=== PATIENT | female | born 1985 | race American Indian/Alaskan Native ===

== ENCOUNTER 2017-02-02 13:21 | Inpatient (IN) | payer MEDICAID ==
[2017-02-02] MEDS ORDERED: MINERAL OIL PO PRN (14:12)
[2017-02-02] MEDS ORDERED: XYLOCAINE 2% INFILTRATI ONE (14:12)
[2017-02-02] MEDS ORDERED: POLYCILLIN/NS 2 GM/100 ML 2 GM/100 ML BAG IV ONE (14:12)
[2017-02-02] MEDS ORDERED: BRETHINE IVP PRN (14:12)
[2017-02-02] MEDS ORDERED: BRETHINE SUB-Q PRN (14:12)
[2017-02-02] MEDS ORDERED: ePHEDrine SULFATE IV PRN (14:12)
[2017-02-02] MEDS ORDERED: PITOCin/NS 20 UNIT/1000ML DRIP 20 UNITS/1,000 ML BAG IV SCH ×2 (15:00→19:00)
[2017-02-02] MEDS ORDERED: LACTATED RINGERS 1,000 ML IV SCH (15:00)
[2017-02-02] MEDS ORDERED: PITOCin/NS 30 UNIT/500ML 30 UNITS/500 ML BAG IV SCH ×2 (15:00)
[2017-02-02 15:34] LABS: Hemoglobin 10.4 gm/dl (10.1-14.3); Mean Corpuscular HGB Conc 31 % (30-34); Mean Corpuscular Volume 78 fl (79-97); Platelet Count 290 K/mm3 (140-440); Red Blood Count 4.25 M/mm3 (3.65-5.03); Red Cell Distribution Width 18.1 % (13.2-15.2); White Blood Count 8.6 K/mm3 (4.5-11.0)
[2017-02-02 15:36] LABS: Mean Corpuscular Hemoglobin 24 pg (28-32)
[2017-02-02 15:53] LABS: Urine Drugs of Abuse Note Disclamer
[2017-02-02 15:58] LABS: HIV-1 Antigen p24 Non React (Non React); HIVR-1/2 Ab Non React (Non React)
[2017-02-02] MEDS ORDERED: MOTRIN PO PRN (16:11)
--- NOTE | 2017-02-02 16:29 | History and Physical Report ---
History of Present Illness Date of examination: 02/02/17 Date of admission: 02/02/17 13:22 Chief complaint: labor History of present illness: Pt presents stating she in labor and had PNC in [place], she moved here 2months ago but did not establish care. She did not bring her PNR with her. States her course has been normal Past History Past Medical History: no pertinent history Past Surgical History: no surgical history [employer] History: denies: chlamydia, gonorrhea, hepatitis B, hepatitis C, herpes, HIV , syphilis, trichomonas Social history: no significant social history - Obstetrical History Expected Date of Delivery: 01/21/17 Actual Gestation: 41 Week(s) 5 Day(s) : 6 Medications and Allergies Allergies Allergy/AdvReac Type Severity Reaction Status Date / Time No Known Allergies Allergy Verified 02/02/17 14:19 Home Medications Medication Instructions Recorded Confirmed Last Taken Type Acetaminophen [Tylenol] 1,000 mg PO Q6HR 10/26/13 10/26/13 10/22/13 20:00 History 1000 Vit#96/Ferrous Fum/FA 1 tab PO BID 10/26/13 10/26/13 10/25/13 16:30 History [ Tablet] 1 Active Meds: Active Medications Ampicillin Sodium (Polycillin/Ns 1 Gm/50 Ml) 1 gm in 50 mls @ 100 mls/hr IV Q4HR HOLLI PRN Reason: Protocol Lactated Ringer's (Lactated Ringers) 1,000 mls @ 125 mls/hr IV DIRECT HOLLI Oxytocin/Sodium Chloride (Pitocin/Ns 20 Unit/1000ml Drip) 20 units in 1,000 mls @ 125 mls/hr IV DIRECT HOLLI Oxytocin/Sodium Chloride (Pitocin/Ns 30 Unit/500ml) 30 units in 500 mls @ 1 mls /hr IV TITR HOLLI; 1 MILLIUNITS/MIN PRN Reason: Protocol Oxytocin/Sodium Chloride (Pitocin/Ns 30 Unit/500ml) 30 units in 500 mls @ 4 mls /hr IV TITR HOLLI PRN Reason: Protocol Mineral Oil (Mineral Oil) 30 ml PO QHS PRN PRN Reason: Constipation Review of Systems All systems: negative - Vital Signs Vital signs: Vital Signs Temp Pulse Resp BP Pulse Ox 99 F 85 16 129/62 99 02/02/17 13:35 02/02/17 13:35 02/02/17 13:35 02/02/17 13:35 02/02/17 13:35 Temp Pulse Resp BP Pulse Ox 99 F 91 H 16 129/62 100 02/02/17 13:35 02/02/17 15:45 02/02/17 13:35 02/02/17 13:43 02/02/17 15:45 - Physical Exam Breasts: Positive: deferred Cardiovascular: Regular rate Lungs: Positive: Normal air movement Genitourinary (Female): Positive: normal external genitalia, normal perenium Vulva: both: normal Extremities: Positive: normal - Obstetrical FHR: category 1 Uterine Contraction Monitor Mode: External Cervical Dilatation: 10 Cervical Effacement Percentage: 100 station: +2, AROM thick meconium Results Result Diagrams: 02/02/17 14:43 Abnormal lab results 02/02/17 Range/Units 14:43 MCV 78 L (79-97) fl MCH 24 L (28-32) pg RDW 18.1 H (13.2-15.2) % All other labs normal. Assessment and Plan - Patient Problems (1) 41 weeks gestation of Current Visit: Yes Status: Acute (2) Meconium in amniotic fluid affecting management of mother in third trimester Current Visit: Yes Status: Acute Qualifiers: Fetus number: single or unspecified fetus Qualified Code(s): O36.8930 - Maternal care for other specified problems, third trimester, not applicable or unspecified (3) No care in current Current Visit: Yes Status: Acute Qualifiers: Trimester: third trimester Qualified Code(s): O09.33 - Supervision of with insufficient care, third trimester
--- NOTE | 2017-02-02 16:29 | Procedure Note ---
OB Delivery Note - Delivery Date of Delivery: 02/02/17 Surgeon: KILEY COREY Estimated blood loss: 200cc - Vaginal Delivery presentation: vertex Delivery position: OA Intrapartum events: no care Delivery induction: AROM (thick meconium) Delivery monitor: external FHT, external uterine Route of delivery: Delivery placenta: spontaneous (intact) Delivery laceration: none Anesthesia: none - A at 1 minute: 8 at 5 minutes: 9 Gender: Male (6-14)
[2017-02-02] MEDS ORDERED: ZOFRAN IV PRN (18:02)
[2017-02-02] MEDS ORDERED: LANSINOH TP PRN (18:02)
[2017-02-02] MEDS ORDERED: SODIUM CHLORIDE FLUSH SYRINGE 10 ML IV SCH (18:02)
[2017-02-02] MEDS ORDERED: PHENERGAN PR PRN (18:02)
[2017-02-02] MEDS ORDERED: TORADOL IV PRN (18:02)
[2017-02-02] MEDS ORDERED: BENADRYL PO PRN (18:02)
[2017-02-02] MEDS ORDERED: MILK OF MAGNESIA PO PRN (18:02)
[2017-02-02] MEDS ORDERED: DULCOLAX PR PRN (18:02)
[2017-02-02] MEDS ORDERED: TUCKS PAD TP PRN (18:02)
[2017-02-02] MEDS ORDERED: PHENERGAN PO PRN (18:02)
[2017-02-02] MEDS ORDERED: METHERGINE IM PRN (18:11)
[2017-02-02] MEDS ORDERED: POLYCILLIN/NS 1 GM/50 ML 1 GM/50 ML BAG IV SCH (18:15)
[2017-02-02] MEDS: TYLENOL PO PRN (20:22)
[2017-02-02] MEDS: MOTRIN PO SCH (23:47)
[2017-02-03 05:10] LABS: Hematocrit 29.2 % (30.3-42.9); Hemoglobin 9.3 gm/dl (10.1-14.3)
[2017-02-03] MEDS: MOTRIN PO SCH ×3 (05:58→18:44)
[2017-02-03] MEDS ORDERED: BOOSTRIX IM ONE (06:00)
--- NOTE | 2017-02-03 11:32 | Progress Note ---
Assessment and Plan - Patient Problems (1) Vaginal delivery Onset Date: 02/02/17 Current Visit: Yes Status: Acute Subjective - Subjective Date of service: 02/03/17 Principal diagnosis: vag del, care elsewhere, GBS unknown at delivery Interval history: VSS, Nl pp course, now 19 hr pp. Has passed one clot, Hct 29. All labs ok Patient reports: appetite normal, voiding normally, pain well controlled, ambulating normally : doing well Objective - Vital Signs Latest vital signs: Vital Signs Temp Pulse Pulse Resp BP BP Pulse Ox 02/03/17 08:30 98.6 F 84 17 108/57 02/03/17 04:00 98.5 F 81 20 117/55 02/03/17 00:10 98.2 F 78 20 120/58 02/02/17 23:47 18 02/02/17 20:22 18 02/02/17 20:00 98.8 F 86 18 121/65 02/02/17 18:10 98.4 F 77 18 120/53 02/02/17 17:53 98.7 F 93 H 16 110/61 02/02/17 17:15 98.8 F 92 H 18 132/76 100 02/02/17 17:14 93 H 110/61 02/02/17 15:45 91 H 100 02/02/17 15:40 95 H 100 02/02/17 15:35 85 100 02/02/17 15:30 118 H 100 02/02/17 15:25 82 100 02/02/17 15:20 82 100 02/02/17 15:15 106 H 100 02/02/17 14:44 86 99 02/02/17 14:39 79 99 02/02/17 14:34 90 99 02/02/17 14:28 75 99 02/02/17 14:23 88 98 02/02/17 14:18 100 H 99 02/02/17 14:13 102 H 98 02/02/17 14:08 88 99 02/02/17 14:03 88 99 02/02/17 13:58 87 99 02/02/17 13:53 79 99 02/02/17 13:47 87 99 02/02/17 13:43 85 129/62 02/02/17 13:42 82 99 02/02/17 13:41 97 H 93 02/02/17 13:37 87 99 02/02/17 13:35 99 F 85 16 129/62 99 Intake and Output 02/02/17 02/03/17 02/03/17 22:59 06:59 14:59 Intake Total 540 360 Output Total 400 Balance 540 -40 Intake: IV 300 Lactated Ringers 1,000 ml 300 @ 125 mls/hr IV DIRECT HOLLI Rx#:[id number] Oral 240 360 Output: Urine 400 Void 400 Other: Total, Intake Amount 240 120 Total, Output Amount 400 # Voids Void 1 Weight 145 lb Estimated Blood Loss 200 - Exam Breasts: Present: deferred Lungs: Present: Normal air movement Abdomen: Present: normal appearance, soft Uterus: Present: firm Extremities: Present: normal - Labs Labs: Abnormal lab results 02/02/17 02/03/17 Range/Units 14:43 04:55 Hgb 9.3 L (10.1-14.3) gm/dl Hct 29.2 L (30.3-42.9) % MCV 78 L (79-97) fl MCH 24 L (28-32) pg RDW 18.1 H (13.2-15.2) %
[2017-02-03] MEDS ORDERED: TYLENOL PO PRN (12:31)
[2017-02-04] MEDS: MOTRIN PO SCH ×3 (00:04→11:25)
[2017-02-04] MEDS: TYLENOL PO PRN ×3 (00:05→11:22)
--- NOTE | 2017-02-04 10:14 | Discharge Summary ---
Providers - Providers Date of Admission: 02/02/17 13:22 Date of discharge: 02/04/17 Attending physician: KILEY COREY 02/02/17 18:02 Consult to Office Professionals [CONS] Routine Reason For Exam: assistance with , SNS Primary care physician: KILEY COREY Hospitalization Condition: Good Pertinent studies: MBT O+, Rub Im, Hct 29, GBS unk, all other drawn labs WNL Procedures: vaginal delivery Hospital course: Did well , probably set for d/c this afternoon if baby bilirubin comes down some. Disposition: DC-01 TO HOME OR SELFCARE - Discharge Diagnoses (1) Vaginal delivery Status: Acute Core Measure Documentation - Palliative Care Palliative Care/ Comfort Measures: Not Applicable - Core Measures Any of the following diagnoses?: none Exam - Constitutional Vitals: Temp Pulse Resp BP Pulse Ox 99.2 F 86 18 119/69 100 02/04/17 08:59 02/04/17 08:59 02/04/17 08:59 02/04/17 08:59 02/02/17 17:15 General appearance: Present: no acute distress - Respiratory Respiratory effort: normal - Extremities Extremities: no ischemia, No edema - Abdominal General gastrointestinal: Present: soft - Integumentary Integumentary: Present: clear, warm, dry - Psychiatric Psychiatric: appropriate mood/affect - Additional findings Additional findings: fundus firm, min bleeding Plan Activity: no restrictions Weight Bearing Status: Full Weight Bearing Diet: regular Follow up with: KILEY COREY MD [Primary Care Provider] - 7 Days (Schedule circumcision in 6 d, sign tubal papers then.) Prescriptions: Ibuprofen [Motrin 600 MG tab] 600 mg PO Q8H PRN #30 tablet PRN Reason: Pain Lidocain2.5%/Prilocai2.5% [Emla] 5 gm TP ONCE #1 tube
[2017-02-04 12:53] VITALS: BP 125/64
== END 2017-02-04 16:38 | disposition home or self-care (01) | DRG 775 ==
LOC: TRG 13:21 → LD 13:22 → TRG 13:24 → OB 17:45
PROVIDERS: ADMIT Obstetrics & Gynecology; ATTEND Obstetrics & Gynecology
PROC: 10E0XZZ Delivery of Products of Conception, External Approach (ICD-10-PCS; principal; 2017-02-02)
PROC: 10907ZC Drainage of Amniotic Fluid, Therapeutic from Products of Conception, Via Natural or Artificial Opening (ICD-10-PCS; 2017-02-02)
PROC: 3E0234Z Introduction of Serum, Toxoid and Vaccine into Muscle, Percutaneous Approach (ICD-10-PCS; 2017-02-03)
DX: O77.0 Labor and delivery complicated by meconium in amniotic fluid (principal); O09.33 Supervision of pregnancy with insufficient antenatal care, third trimester; Z3A.41 41 weeks gestation of pregnancy; Z37.0 Single live birth; Z23 Encounter for immunization
CPT/HCPCS: 36415; 80307; 85014; 85018; 85027; 86592; 86706; 86762; 86803; 86850; 86900; 86901; 87806; 88307; 99211; G0463; J0290; J2590; J7120